=== PATIENT | female | born 1950 | race Caucasian/White ===

== ENCOUNTER 2018-05-18 01:59 | Emergency (ER) | payer MEDICARE, OTHER ==
[~2018-05-18] VITALS: Ht 157.5 cm; Wt 90.7 kg
--- NOTE | 2018-05-18 02:05 | NUR ---
PT BIBFAMILY C/O "WHEEZING" X 1 DAY. HX ASTHMA. PT AOX4. NAD NOTED. AUDIBLE WHEEZING. PT ON MONITOR IN BED 9. O2 SAT: 97%. WILL CONTINUE TO MONITOR.
--- NOTE | 2018-05-18 02:20 | NUR ---
RADIOLOGY AT BEDSIDE FOR XRAY
[2018-05-18] MEDS ORDERED: predniSONE 20 MG TABLET ONE (02:23)
[2018-05-18] MEDS ORDERED: ALBUTEROL FS 2.5 MG/3 ML VIAL.NEB NEB ONE ×2 (02:30→03:30)
[2018-05-18] MEDS ORDERED: predniSONE 20 MG TABLET PO ONE (02:30)
--- NOTE | 2018-05-18 02:35 | NUR ---
RT AT BEDSIDE FOR BREATHING TREATMENT
--- NOTE | 2018-05-18 02:35 | NUR ---
INFLUEZNA SWAB DONE AND SENT TO LAB
[2018-05-18] MEDS ORDERED: ALBUTEROL FS 2.5 MG/3 ML VIAL.NEB ONE ×2 (02:37→03:27)
--- NOTE | 2018-05-18 02:56 | NUR ---
FAMILY AT BEDSIDE
--- NOTE | 2018-05-18 03:21 | NUR ---
CALLED RT FOR BREATHING TX
--- NOTE | 2018-05-18 03:28 | NUR ---
RT AT BEDSIDE FOR SECOND BREATHING TREATMENT
[2018-05-18 04:02] VITALS: BP 142/71
--- NOTE | 2018-05-18 04:15 | NUR ---
Patient discharged to home in stable condition. Written and verbal after care instructions given. Patient verbalizes understanding of instruction. PT AMBULATORY WITH STEADY GAIT ACCOMPANIED BY FAMILY.
== END 2018-05-18 04:22 | disposition home or self-care (01) ==
LOC: ER 02:04
DX: J45.901 Unspecified asthma with (acute) exacerbation (principal); I10 Essential (primary) hypertension; F41.9 Anxiety disorder, unspecified; Z98.890 Other specified postprocedural states; Z90.710 Acquired absence of both cervix and uterus
CPT/HCPCS: 71045; 87804 ×2; 94640 ×2; 99284; A4606; J7512; Z7610; 87400